=== PATIENT | male | born 1975 | race Caucasian/White ===

== ENCOUNTER 2019-10-14 16:11 | Inpatient (IN) | payer SELFPAY ==
[2019-10-14] VITALS (17 sets, daily range): BP systolic 120–176; BP diastolic 80–104; PULSE 78–111; RESP 14–24; TEMP 36.2–37.1; O2SAT 92–99; BMI 28.0
--- NOTE | 2019-10-14 16:41 | ED_ITS ---
HPI - Abdominal Pain General: Chief Complaint: Abdominal Pain Stated Complaint: abd pain, nausea, vomiting Time Seen by Provider: 10/14/19 16:28 History of Present Illness: HPI narrative: Patient is a generally healthy 44-year-old male presenting today with abdominal pain. He says he has had a ventral hernia before but he still has been able to push it back in. Today he lifted a light table and felt tearing and the hernia came out. Since that time is not been able to get it to push back in. He said it has been out for about 4 hours. He has had vomiting, sweating, severe pain. MD elicited complaint: abdominal pain Pertinent past history: other (Hernia) Onset (ago): hour(s) (4) Location: Periumbilical Associated Symptoms: Reports nausea and vomiting; Denies chills and fever(s) Review of Systems General: Reports: 10 or more systems reviewed and unremarkable except in HPI and below Const: Denies: fever(s), chills, fatigue or malaise Eyes: Denies: change in vision ENMT: Denies: odynophagia Card: Denies: chest pain or swelling of feet/ankles Resp: Denies: dyspnea, productive cough or non-productive cough GI: Reports: abdominal pain, nausea and vomiting : Denies: flank pain Musc: Denies: neck pain or back pain Skin/Breast: Denies: rash Neuro: Denies: headache(s), numbness in extremities or weakness in extremities Gurpreet/Lymph: Denies: easy bruising or easy bleeding PFS ED PFSH: Medical History Non Hodgkin's lymphoma Social History Smoking and tobacco status: never smoked Physical Exam Const: COMMON NORMALS: no acute distress, patient oriented x3, no limitations and alert GENERAL APPEARANCE: cooperative and comfortable HENMT: HEAD & SCALP: normal to inspection FACE & SINUS: normal facial exam Eye: GENERAL EYE: appearance normal, both eyes and all related structures Neck/C-Spine: COMMON NORMALS: supple, no meningeal signs and no JVD Chest: COMMONS NORMALS: normal inspection of the chest Resp: COMMON NORMALS: normal respiratory effort, No use of accessory muscles and clear to auscultation bilaterally AUSCULTATION: clear to auscultation bilaterally Cardio: COMMON NORMALS: no JVD, regular rate, regular rhythm and No murmurs present (Cardio) RATE: regular rate RHYTHM: regular rhythm GI: INSPECTION: Yes other (Softball sized ventral hernia just above the umbilicus. Tender, firm, nonreducible.) Back/Pelvis: COMMON NORMALS: thoracic and lumbar spine normal to inspection Extremity: COMMON NORMALS: normal to inspection Neuro: COMMON NORMALS: patient oriented x3, moves all extremities, no focal motor deficits and no sensory deficits noted SENSORIUM/ORIENTATION: Yes alert MENINGEAL SIGNS: Yes no meningeal signs Psych: COMMON NORMALS: mental status grossly normal, cooperative and normal affect Skin: COMMON NORMALS: no rashes or lesions noted and turgor normal GENERAL SKIN EXAM: no rashes or lesions noted and turgor normal Course ED course: I medicated the patient with Dilaudid and attempted to reduce the hernia. I was unsuccessful in call Dr. Lr. Dr. Lr took him to the OR for repair. Vital Signs: Vital signs: Vital Signs Temperature 98.0 F 10/15/19 19:34 Pulse Rate 80 10/15/19 19:57 Respiratory Rate 16 10/15/19 19:57 Blood Pressure 128/77 10/15/19 19:34 Pulse Oximetry 98 10/15/19 19:57 MDM - Abdominal Pain Lab Data: Labs: Lab Results 10/14/19 10/14/19 10/14/19 Range/Units 16:54 16:54 16:54 WBC 13.7 H (4.0-10.0) 10^3/ uL RBC 4.98 (4.1-5.3) 10^6/u L Hgb 14.7 (11.7-16.6) g/dL Hct 43.8 (42.0-52.0) % MCV 88.0 (80-94) fL MCH 29.5 (28.0-34.0) pg MCHC 33.6 (30.0-36.0) g/dL RDW 11.9 L (12.1-15.1) % Plt Count 374 (130-400) 10^3/c mm MPV 9.4 (7.4-10.4) fL Neut % (Auto) 83.1 % Lymph % (Auto) 13.0 % [place] % (Auto) 2.7 % Eos % (Auto) 0.2 % Baso % (Auto) 0.6 % Neut # (Auto) 11.4 H (1.8-7.7) 10^3/u L Lymph # (Auto) 1.8 (0.8-4.8) 10^3/u L [place] # (Auto) 0.4 (0.2-0.9) 10^3/u L Eos # (Auto) 0.0 (0.0-0.8) 10^3/u L Baso # (Auto) 0.1 (0.0-0.1) 10^3/u L Nucleated RBC % (a uto) 0 % Nucleated RBCs # 0.0 /100WBC Sodium 138 (136-145) mmol/L Potassium 4.1 (3.5-5.1) mmol/L Chloride 100 (98-107) mmol/L Carbon Dioxide 23 (22-29) mmol/L Anion Gap 19.1 H (5-19) BUN 14 (6-20) mg/dL Creatinine 1.0 (0.7-1.2) mg/dL GFR Calculation 80.8 L (90-130) mL/min Glucose 150 H (65-115) mg/dL Calculated Osmolal ity 285 (285-295) mOsm/k g Lactate 1.7 (0.5-2.2) mmol/L Calcium 11.0 H (8.5-10.5) mg/dL Total Bilirubin 0.4 (0.15-1.2) mg/dL AST 29 (0-40) U/L ALT 40 (0-41) U/L Alkaline Phosphata se 73 (40-130) IU/L Total Protein 7.8 (6.6-8.7) g/dL Albumin 4.5 (3.5-5.2) g/dL Globulin 3.3 (1.3-4.6) g/dL Lipase 15 (13-60) U/L Discharge Plan Discharge Patient Disposition: Admitted As Inpatient Admit Provider: Anuel Lr Discharge Date/Time: 10/14/19 19:00 Coding Level of Care Code ED Liquor Gallery Operator for g Fwd Exam Comprehensive
[2019-10-14 17:07] LABS: Basophils # 0.1 10^3/uL (0.0-0.1); Basophils % 0.6 %; Eosinophils % 0.2 %; Hematocrit 43.8 % (42.0-52.0); Hemoglobin 14.7 g/dL (11.7-16.6); Lymphocytes # 1.8 10^3/uL (0.8-4.8); Mean Corpuscular HGB Conc 33.6 g/dL (30.0-36.0); Mean Corpuscular Hemoglobin 29.5 pg (28.0-34.0); Mean Platelet Volume 9.4 fL (7.4-10.4); Monocytes # 0.4 10^3/uL (0.2-0.9); Monocytes % 2.7 %; Neutrophils # 11.4 10^3/uL (1.8-7.7); Neutrophils % 83.1 %; Nucleated Red Blood Cells % 0 %; Platelet Count 374 10^3/cmm (130-400); Red Blood Count 4.98 10^6/uL (4.1-5.3); Red Cell Distribution Width 11.9 % (12.1-15.1); White Blood Count 13.7 10^3/uL (4.0-10.0)
[2019-10-14] MEDS: ondansetron 2 mg/ML SDV 2 mL 4 MG IVP (17:16)
[2019-10-14] MEDS: sodium chloride 0.9% 1,000 ML 999 ML IV (17:17)
[2019-10-14] MEDS: HYDROmorphone 1 mg/mL INJ 1 mL IVP (17:17)
[2019-10-14 17:36] LABS: Alanine Aminotransferase 40 U/L (0-41); Albumin Level 4.5 g/dL (3.5-5.2); Alkaline Phosphatase 73 IU/L (40-130); Anion Gap 19.1 (5-19); Aspartate Amino Transferase 29 U/L (0-40); Blood Urea Nitrogen 14 mg/dL (6-20); Carbon Dioxide 23 mmol/L (22-29); Chloride 100 mmol/L (98-107); Creatinine Clr Calc Pharmacy 101.4563; Globulin 3.3 g/dL (1.3-4.6); Glomerular Filtration Rate 80.8 mL/min (90-130); Glucose 150 mg/dL (65-115); Lipase 15 U/L (13-60); Osmolality Calculated 285 mOsm/kg (285-295); Potassium 4.1 mmol/L (3.5-5.1); Sodium 138 mmol/L (136-145); Total Bilirubin 0.4 mg/dL (0.15-1.2); Total Protein 7.8 g/dL (6.6-8.7)
[2019-10-14 17:37] LABS: Lactate (Lactic Acid level) 1.7 mmol/L (0.5-2.2)
--- NOTE | 2019-10-14 18:04 | PM.HP ---
Providers/Chief Complaint Admitting Physician: Anuel Lr MD Chief Complaint: abd pain History of Present Illness Chief Complaint: Abdominal pain History of present illness: Mr Salty Joseph is a 44 year old male presents to the ER with worsening abdominal pain mostly in the periumbilical region, pain started around 1 PM today while the patient was attempting to lift heavy object and he had his previously diagnosed hernia to pop out and incarcerated and was not able to push it back as he used to before, patient denies any previous hernia repair and he admits that he had a previous laparoscopic biopsy for non-Hodgkin's lymphoma that was treated. An attempt but the ER attending to reduce the hernia was unsuccessful, general surgery was consulted for further evaluation, in the ER the patient was evaluated by me and found to have a large hernia which will not be reduced bedside and will require surgical intervention due to its size. Patient reports pain is mostly in the periumbilical region not being referred nothing makes it better except by lying down and what makes it worse by trying to push on it. Review of Systems General: Reports: 10 or more systems reviewed and unremarkable except in HPI and below Medications/Allergies Home Medications Medication Instructions Recorded Confirmed Last Taken Type No Known Home Medications 10/14/19 10/14/19 Unknown History Allergies Allergy/AdvReac Type Severity Reaction Status Date / Time No Known Allergies Allergy Verified 10/14/19 16:24 PFSH Acute PFSH: Medical History (Updated 10/14/19 @ 18:09 by Anuel Lr MD) Non Hodgkin's lymphoma Social History Smoking and tobacco status: never smoked Vitals/I&O/Wt Last Vital Signs Temp 97.8 F 10/14/19 16:20 Pulse 103 H 10/14/19 17:11 Resp 16 10/14/19 17:11 BP 176/103 10/14/19 17:11 Pulse Ox 99 10/14/19 17:11 Weight last 48 hrs Weight 190 lb Physical Exam Narrative: EXAM NARRATIVE: Patient is conscious alert oriented X3 BMI 28 Head and neck examination PERRLA no masses no cervical lymphadenopathy no jaundice Cardiac examination audible S1-S2 no murmurs no gallops no arrhythmias Chest is clear bilateral,abscence of Rhonchi or wheezes,no surgical emphysema Large ventral incarcerated hernia irreducible/mild erythema of the overlying skin Otherwise abdomen nontender nondistended soft no organomegaly guarding or rigidity/no signs of peritonitis Extremities no cyanosis no clubbing no edema Data : 10/14/19 16:54 10/14/19 16:54 A&P Assessment and plan (1) Incarcerated ventral hernia: After history taking physical examination and reviewing the toney.I counseled the patient for urgent open ventral hernia repair with possible mesh placement, indications, risks, benefits and alternatives all discussed with the patient including potential bowel resection if indicated. Patient understands the procedure and he wants to proceed accordingly Informed consent per chart Status: Acute Attestations Medical Necessity Statement*: Observation Time Spent in Patient Care: 16 - 35 minutes (>than 50% of time spent in counselling and/or direct pt care on unit). Coding Level of Care Code Acute Golf Starter And Ranger for Domenico Harrington Diagnoses Incarcerated ventral hernia K43.6
[2019-10-14] MEDS: morphine 4 mg/mL SDV 1 mL 2 MG IVP ×2 (18:24→22:27)
[2019-10-14] MEDS: sodium chloride 0.9% 1,000 ML 30 ML IV (19:10)
--- NOTE | 2019-10-14 19:16 | P.ANESASSM_ITS ---
Pre-Anesthetic Assessment Pre-Anesthetic Assessment: Height/Weight: Height 1.75 m Weight 86.183 kg Temp Pulse Resp BP Pulse Ox 97.8 F 101 H 18 170/99 94 10/14/19 16:20 10/14/19 18:11 10/14/19 18:24 10/14/19 18:11 10/14/19 18:11 Preop Diagnosis: Incarcerated ventral hernia Proposed Procedure: Operation Date: 10/14/19 19:15 Proposed Procedures p Laparoscopic Ventral Hernia Repair(Not Applicable) - Anuel Lr MD Social: Social History: No alcohol and No tobacco Exam: Pre-Anes Outpt Exam: alert, oriented x 3, clear to auscultation bilatera lly and regular rate & rhythm Airway: Submandibular: WNL Cervical ROM: WNL MP: 2 Dentition: Other (teeth ok) History/ROS: No significant history except as noted Pulmonary: Pulmonary: None reported CV/HEM: CV/HEM: None reported : : None reported Hepatic: Hepatic: None reported GI: GI: None reported Metabolic: Comments: Non Hodgkin's lymphoma Musc/skel: Musc/skel: None reported Neuropsych: Neuropsych: None reported Anesthetic Plan: ASA status: 2E Anesthesia: Anesthesia Evaluation and General Risk of > 500 ml blood loss (7ml/kg in children): No PFSH Anesthesia PFSH: Medical History Non Hodgkin's lymphoma Social History Smoking and tobacco status: never smoked Data Anesthesia CBC & Chem 7: 10/14/19 16:54 10/14/19 16:54 Other Labs: Laboratory Results - last 48 hr 10/14/19 10/14/19 10/14/19 16:54 16:54 16:54 WBC 13.7 H RBC 4.98 Hgb 14.7 Hct 43.8 MCV 88.0 MCH 29.5 MCHC 33.6 RDW 11.9 L Plt Count 374 MPV 9.4 Neut % (Auto) 83.1 Lymph % (Auto) 13.0 [place] % (Auto) 2.7 Eos % (Auto) 0.2 Baso % (Auto) 0.6 Neut # (Auto) 11.4 H Lymph # (Auto) 1.8 [place] # (Auto) 0.4 Eos # (Auto) 0.0 Baso # (Auto) 0.1 Nucleated RBC % (auto) 0 Nucleated RBCs # 0.0 Sodium 138 Potassium 4.1 Chloride 100 Carbon Dioxide 23 Anion Gap 19.1 H BUN 14 Creatinine 1.0 GFR Calculation 80.8 L Glucose 150 H Calculated Osmolality 285 Lactate 1.7 Calcium 11.0 H Total Bilirubin 0.4 AST 29 ALT 40 Alkaline Phosphatase 73 Total Protein 7.8 Albumin 4.5 Globulin 3.3 Lipase 15 Cardiac Studies: No Data to Display
--- NOTE | 2019-10-14 20:02 | PC.NURSE ---
1999 Spoke with patient's mother and let her know status
--- NOTE | 2019-10-14 20:55 | PM.OP ---
Operative Report Date of procedure: October 14, 2019 Pre-op Diagnosis: Incarcerated ventral hernia Post-op diagnosis: other (Incarcerated ventral hernia including infarcted partial part of the omentum and gangrenous small bowel loop likely mid jejunum measures about 3 inches) Procedure Done: Open primary repair of incarcerated ventral hernia Small bowel resection and [id number] anastomosis using STACI blue load 55 mm Partial omentectomy Specimens removed/disposition: Small bowel resection Partial omentectomy Hernial sac Staple line Surgeon: Anuel Lr Home Care Music Therapist: Surgical elana Coker Circulating nurse Jessica Stone Anesthesia: General (Lio Boyd and Dr. Jenkins) Estimated blood loss (mL): 25 Condition: stable Disposition: floor Brief History: Mr Salty Joseph is a 44 year old male presents to the ER with worsening abdominal pain mostly in the periumbilical region, pain started around 1 PM today while the patient was attempting to lift heavy object and he had his previously diagnosed hernia to pop out and incarcerated and was not able to push it back as he used to before, patient denies any previous hernia repair and he admits that he had a previous laparoscopic biopsy for non-Hodgkin's lymphoma that was treated. An attempt but the ER attending to reduce the hernia was unsuccessful, general surgery was consulted for further evaluation, in the ER the patient was evaluated by me and found to have a large hernia which will not be reduced bedside and will require surgical intervention due to its size. Patient reports pain is mostly in the periumbilical region not being referred nothing makes it better except by lying down and what makes it worse by trying to push on it. After thorough history physical examination and reviewing the chart I did school adjustment counselor the patient for open ventral hernia repair with possible mesh placement. Indications, risks, benefits and alternatives all discussed with the patient and he did agree to proceed Informed consent per chart Procedure: Patient was identified in holding area and the site of the hernia was marked by me, patient was asked to void urine prior to surgery,Patient was brought then to the operating room, general endotracheal anesthesia was administered by the anesthesia provider.prophylactic IV antibiotics were given per protocol Time-out was done verifying the patient's name/date of /planned procedure and destination after the procedure, all were in agreement. SCDs confirmed to be functioning, preoperative antibiotics administered per protocol, and beta randall protocol was confirmed. Prep and drape of the abdomen was done under the usual sterile technique. I started by Supraumbilical longitudinal skin incision dissection all the way through the subcutaneous layer, I was able to identify the incarcerated large ventral incisional hernia, dissection was carried all the way down to the fascia, hernia sac was then opened serosanguineous fluid was appreciated. Delivery of the incarcerated hernial contents in the form of dusky rodrigez looking part of the omentum encasing a segment of gangrenous mid jejunal loop about 3 inches in length. Attention was deviated to perform a small bowel resection with windows were created in the mesentery and a 55 mm blue load was used to divide proximal and distal,Delivery of the rest of bowel loops were done showed viable contents and then were placed back into the abdominal cavity Attention was deviated towards the anastomosis were 3-0 silk stay sutures were applied to the seromuscular layer and both limbs were approximated were additional windows were created and a STACI blue load was fired to create qbwk-[id number] anastomosis followed by that three Allis clamps were applied at the enterotomy sites were approximated of enterotomy edges and an additional 55 mm blue load was applied x2 and divided out the enterotomy sites and the staple line was sent for pathology. LigaSure was used to perform partial omentectomy of the diseased portion of the omentum. Specimens were passed for permanent pathology including partial omentectomy, small bowel resection, staple line and hernia sac. Attention was deviated towards the mesentery where it was closed by 3-0 silk, the acgv-yj-fthf anastomosis was patent as it was checked by the examining fingers.A 3-0 silk stitch was applied at the crutch of the anastomosis I was able to free the overlying fat on top of the fascia, facilitate primary closure. Thorough irrigation with warm saline was achieved followed by changing of the gloves At that point the fascial defect was about 5 inches diameter, after freeing all the adhesions, under direct visualization I was able to use #1 PDS to repair the defect primarily, as an interrupted [id number]-[id number] sutures, thorough irrigation of the wound was then achieved and hemostasis. Followed by an additional interrupted #1 PDS,2-0 Vicryl was used for subdermal closure,then skin maya were used for skin approximation followed by packing with half inch Nu Gauze in between the skin maya Exparel was injected for postoperative pain control Counts of sponges and instruments were completed at the end of the procedure Patient tolerated the procedure well and was taken to the recovery area in stable condition I was present for the whole entire procedure
--- NOTE | 2019-10-14 21:02 | SUR.PHASEI ---
2100 PATIENT TO PACU AT THIS TIME FROM OR. RR EVEN AND UNLABORED. SPO2 95% ON RA. DRESSING TO ABDOMEN, CDI WITH ABDOMINAL BINDER IN PLACE.
[2019-10-14] MEDS: labetalol 5 mg/mL SDV 20mL 10 MG IVP (21:07)
[2019-10-14] MEDS: fentaNYL 50 mcg/mL INJ 2mL IVP (21:23)
--- NOTE | 2019-10-14 21:52 | SUR.PHASEI ---
2136 PATIENT TO MED SURG. NO DISTRESS. DENIES NAUSEA. TOLERATING ICE CHIPS. PAIN IMPROVED. A/OX3.
--- NOTE | 2019-10-14 21:53 | SUR.PHASEI ---
2136 ANESTHESIA AWARE OF LAST DOSE OF IV PAIN MEDICATION. THIS NURSE REMAINED WITH PATIENT UNTIL 2149.
[2019-10-14] MEDS: sodium chloride 0.9% 1,000 ML 125 ML IV (22:27)
[2019-10-14] MEDS: piperacillin-tazobactam 3.375 GM in sodium chloride 0.9% (plus) 50 ML IV (22:29)
[2019-10-15] VITALS (9 sets, daily range): BP systolic 115–128; BP diastolic 70–81; PULSE 75–103; RESP 16–20; TEMP 36.5–37.2; O2SAT 93–98
[2019-10-15 03:54] LABS: Basophils % 0.2 %; Hematocrit 40.8 % (42.0-52.0); Hemoglobin 13.6 g/dL (11.7-16.6); Lymphocytes # 0.9 10^3/uL (0.8-4.8); Lymphocytes % 5.4 %; Mean Corpuscular HGB Conc 33.3 g/dL (30.0-36.0); Mean Corpuscular Hemoglobin 29.6 pg (28.0-34.0); Mean Corpuscular Volume 88.9 fL (80-94); Monocytes # 0.3 10^3/uL (0.2-0.9); Monocytes % 1.9 %; Neutrophils # 15.4 10^3/uL (1.8-7.7); Nucleated Red Blood Cells % 0 %; Platelet Count 339 10^3/cmm (130-400); Red Blood Count 4.59 10^6/uL (4.1-5.3); Red Cell Distribution Width 12.1 % (12.1-15.1); White Blood Count 16.7 10^3/uL (4.0-10.0)
[2019-10-15 04:07] LABS: Anion Gap 13.7 (5-19); Blood Urea Nitrogen 12 mg/dL (6-20); Calcium 8.7 mg/dL (8.5-10.5); Carbon Dioxide 25 mmol/L (22-29); Chloride 103 mmol/L (98-107); Glomerular Filtration Rate 104.5 mL/min (90-130); Glucose 157 mg/dL (65-115); Osmolality Calculated 283 mOsm/kg (285-295); Potassium 4.7 mmol/L (3.5-5.1); Sodium 137 mmol/L (136-145)
[2019-10-15] MEDS: sodium chloride 0.9% 1,000 ML 125 ML IV ×2 (05:47→14:40)
[2019-10-15] MEDS: piperacillin-tazobactam 3.375 GM in sodium chloride 0.9% (plus) 50 ML IV ×3 (05:47→21:59)
--- NOTE | 2019-10-15 06:34 | PM.PN ---
Subjective Subjective: Interval history: Patient overall feels better No acute events overnight Slight elevation in WBC count Vitals/I&O/Wt Last Vital Signs Temp 98.7 F 10/15/19 04:45 Pulse 101 H 10/15/19 04:45 Resp 16 10/15/19 04:45 BP 121/78 10/15/19 04:45 Pulse Ox 94 10/15/19 04:45 10/14/19 10/14/19 10/15/19 14:59 22:59 06:59 Intake Total 1150 / 1150 966.667 / 2116.667 Output Total Balance 1125 / 1125 966.667 / 2091.667 Weight last 48 hrs Weight 190 lb Physical Exam Narrative: EXAM NARRATIVE: Patient is conscious alert oriented X3 BMI 28 Head and neck examination PERRLA no masses no cervical lymphadenopathy no jaundice Cardiac examination audible S1-S2 no murmurs no gallops no arrhythmias Chest is clear bilateral,abscence of Rhonchi or wheezes,no surgical emphysema Abdomen nontender nondistended soft no organomegaly guarding or rigidity/no signs of peritonitis Incision is clean dry and intact and packing in place Extremities no cyanosis no clubbing no edema Data : 10/15/19 03:42 10/15/19 03:36 A&P Assessment and plan (1) Incarcerated ventral hernia: Encourage ambulation Incentive spirometer every hour Continue mechanical DVT prophylaxis Repeat labs in the morning Once patient starts passing gas will start him slowly on clear liquid diet I's and O's Assurance and education All questions have been answered and all concerns have been addressed to patient's satisfaction. Status: Resolved Attestations Medical Necessity Statement*: Medical necessity care is expected to cross 2 midnights Time Spent in Patient Care: (>than 50% of time spent in counselling and/or direct pt care on unit). Coding Level of Care Code Acute Procurement Assistant for Domenico Fwd Diagnoses Incarcerated ventral hernia K43.6
--- NOTE | 2019-10-15 09:12 | PC.CHAP ---
Pastoral Care Encounter/Spiritual Assessment Type of Contact [] Declined data consultant visit [] Patient/Family/Request visit [] Outpatient visit [] Follow-up visit [] Physician referral [] Code/Alert [x] Routine visit [] Staff referral [] Actively dying [] Patient sleeping [] Family support [] [] Out of room [] Palliative care [] [] Receiving care in room [] Pre-surgical visit [] Trauma [] Long length of stay [] ICU visit [] Other: Relational/Emotional Strength [] Patient feels connected with others/family/visitors/staff [] Distress [] Loneliness/isolation [] Abandonment Spirituality of Patient [] Person of Gwendolyn [] Attends Confucianism of their Gwendolyn [] Believes in Prayer [] Reads Bible or Worship materials [] There are Spiritual issues to be addressed Business Performance Advisor Interventions [x] Prayer [] Active listening [] Non-anxious presence [] Spiritual/emotional support [] Crisis/trauma care [] Spiritual counseling [] Bereavement support [] Provided bereavement packet [] Provided Bible/devotional materials [] Provided toy/stuffed animal, coloring book to patient or family member [] Provided Communion [] Anointing/[place] [] Salvation [x] Completed spiritual assessment [] Other: Impact on Illness or Injury [] Angry [] Fearful [] Anxious [] Often cries [] Exhaustion [] Unable to work [] Unable to attend gnosticist [] Unable to walk/stand [] Unable to read [] Unable to drive [] Unable to eat/drink [] Unable to sleep [] Unable to be with family [] Patient intubated [] Other: Summary Patients pain better. Patient resting well Time spent with patient 5 min
[2019-10-15] MEDS: acetaminophen 325 mg Tablet 650 MG PO ×2 (17:13→23:50)
[2019-10-16] VITALS (7 sets, daily range): BP systolic 127–150; BP diastolic 78–89; PULSE 78–110; RESP 16–20; TEMP 36.4–37.2; O2SAT 95–98
[2019-10-16] MEDS: sodium chloride 0.9% 1,000 ML 125 ML IV ×3 (02:12→13:54)
[2019-10-16 05:03] LABS: Basophils # 0.1 10^3/uL (0.0-0.1); Basophils % 0.5 %; Eosinophils % 0.1 %; Hematocrit 34.5 % (42.0-52.0); Hemoglobin 11.3 g/dL (11.7-16.6); Lymphocytes # 2.7 10^3/uL (0.8-4.8); Lymphocytes % 23.4 %; Mean Corpuscular HGB Conc 32.8 g/dL (30.0-36.0); Mean Corpuscular Hemoglobin 29.3 pg (28.0-34.0); Mean Corpuscular Volume 89.4 fL (80-94); Mean Platelet Volume 9.1 fL (7.4-10.4); Monocytes # 0.8 10^3/uL (0.2-0.9); Monocytes % 6.8 %; Neutrophils # 8.1 10^3/uL (1.8-7.7); Neutrophils % 68.9 %; Nucleated Red Blood Cells % 0 %; Platelet Count 317 10^3/cmm (130-400); Red Blood Count 3.86 10^6/uL (4.1-5.3); Red Cell Distribution Width 12.5 % (12.1-15.1); White Blood Count 11.7 10^3/uL (4.0-10.0)
[2019-10-16 05:27] LABS: Chloride 109 mmol/L (98-107); Potassium 3.9 mmol/L (3.5-5.1); Sodium 142 mmol/L (136-145)
[2019-10-16 05:48] LABS: Alanine Aminotransferase 20 U/L (0-41); Albumin Level 3.7 g/dL (3.5-5.2); Alkaline Phosphatase 50 IU/L (40-130); Anion Gap 11.9 (5-19); Aspartate Amino Transferase 16 U/L (0-40); Blood Urea Nitrogen 10 mg/dL (6-20); Calcium 8.8 mg/dL (8.5-10.5); Carbon Dioxide 25 mmol/L (22-29); Globulin 2.2 g/dL (1.3-4.6); Glucose 110 mg/dL (65-115); Osmolality Calculated 291 mOsm/kg (285-295); Total Bilirubin 0.4 mg/dL (0.15-1.2); Total Protein 5.9 g/dL (6.6-8.7)
--- NOTE | 2019-10-16 05:54 | PM.PN ---
Subjective Subjective: Interval history: No acute events overnight Patient did not pass gas yet Trending down of leukocytosis Good urine output Vitals/I&O/Wt Last Vital Signs Temp 98.2 F 10/16/19 04:00 Pulse 96 10/16/19 04:00 Resp 18 10/16/19 04:00 BP 127/78 10/16/19 04:00 Pulse Ox 95 10/16/19 04:00 10/15/19 10/15/19 10/16/19 14:59 22:59 06:59 Intake Total 1050 / 1050 1050 / 2100 50 / 2150 Output Total 1100 / 1100 1100 / 2200 Balance -50 / -50 1050 / 1000 -1050 / -50 Weight last 48 hrs Weight 190 lb Physical Exam Narrative: EXAM NARRATIVE: Patient is conscious alert oriented X3 BMI 28 Head and neck examination PERRLA no masses no cervical lymphadenopathy no jaundice Cardiac examination audible S1-S2 no murmurs no gallops no arrhythmias Chest is clear bilateral,abscence of Rhonchi or wheezes,no surgical emphysema Abdomen nontender sepsis-like at the incision site and skin maya in place nondistended soft no organomegaly guarding or rigidity/no signs of peritonitis Dressing was undone and packing were removed and bedside packing was done by ma Extremities no cyanosis no clubbing no edema Data : 10/17/19 05:34 10/17/19 05:34 A&P Assessment and plan (1) Incarcerated ventral hernia: Patient is postoperative day 2 status post open ventral hernia repair and bowel resection Continue n.p.o. except for popsicle, patient started passing gas will start slowly on clear liquid We will continue IV antibiotic therapy due to the bowel resection was gangrenous Packing the wound daily with half inch Nu Gauze wet-to-dry followed by ABDs Assurance and education All questions have been answered and all concerns have been addressed to patient's satisfaction. Status: Resolved Attestations Medical Necessity Statement*: Medical necessity care is expected to cross 2 midnights Time Spent in Patient Care: 16 - 35 minutes (>than 50% of time spent in counselling and/or direct pt care on unit). Coding Level of Care Code Acute Polishing Machine Operator for Domenico Harrington Diagnoses Incarcerated ventral hernia K43.6
[2019-10-16] MEDS: piperacillin-tazobactam 3.375 GM in sodium chloride 0.9% (plus) 50 ML IV ×3 (06:00→21:58)
--- NOTE | 2019-10-16 12:35 | PC.NURSE ---
AMBULATION Patient ambulated in halls for approx. 1 hours. Patient denies gas at this time. BS actie X4. SILVANAW, AIRCRAFT ARMAMENT MECHANIC
[2019-10-17] VITALS (8 sets, daily range): BP systolic 128–162; BP diastolic 86–106; PULSE 84–108; RESP 18–20; TEMP 36.4–37.3; O2SAT 95–98
[2019-10-17 05:58] LABS: Basophils # 0.1 10^3/uL (0.0-0.1); Basophils % 0.6 %; Eosinophils % 0.3 %; Hematocrit 44.6 % (42.0-52.0); Hemoglobin 14.2 g/dL (11.7-16.6); Lymphocytes # 2.4 10^3/uL (0.8-4.8); Lymphocytes % 17.3 %; Mean Corpuscular HGB Conc 31.8 g/dL (30.0-36.0); Mean Platelet Volume 9.3 fL (7.4-10.4); Monocytes % 7.2 %; Neutrophils # 10.1 10^3/uL (1.8-7.7); Neutrophils % 74.2 %; Nucleated Red Blood Cells % 0 %; Platelet Count 365 10^3/cmm (130-400); White Blood Count 13.6 10^3/uL (4.0-10.0)
[2019-10-17 06:13] LABS: Anion Gap 19.7 (5-19); Blood Urea Nitrogen 13 mg/dL (6-20); Carbon Dioxide 17 mmol/L (22-29); Chloride 105 mmol/L (98-107); Glucose 84 mg/dL (65-115); Osmolality Calculated 281 mOsm/kg (285-295); Potassium 3.7 mmol/L (3.5-5.1); Sodium 138 mmol/L (136-145)
--- NOTE | 2019-10-17 06:30 | P.PN_ITS ---
Subjective Subjective: Interval history: Patient overall feels well Trending up leukocytosis likely underlying atelectasis Vitals/I&O/Wt Last Vital Signs Temp 98.5 F 10/17/19 04:00 Pulse 101 H 10/17/19 04:00 Resp 20 H 10/17/19 04:00 BP 139/93 10/17/19 04:00 Pulse Ox 95 10/17/19 04:00 10/16/19 10/16/19 10/17/19 14:59 22:59 06:59 Intake Total 1512.500 / 1512.500 50 / 1562.500 Output Total 1750 / 1750 300 / 2050 0 / 2050 Balance -237.500 / -237.500 -250 / -487.500 0 / -487.500 Physical Exam Narrative: EXAM NARRATIVE: Patient is conscious alert oriented X3 BMI 28 Head and neck examination PERRLA no masses no cervical lymphadenopathy no jaundice Cardiac examination audible S1-S2 no murmurs no gallops no arrhythmias Chest fair air entry bilateral Abdomen nontender nondistended soft no organomegaly guarding or rigidity/no signs of peritonitis/wound is clean Extremities no cyanosis no clubbing no edema Data : 10/17/19 05:34 10/17/19 05:34 A&P Assessment and plan (1) Incarcerated ventral hernia: Patient is postoperative day 3 status post open ventral hernia repair and bowel resection Continue n.p.o. except for popsicle, patient started passing gas will start slowly on clear liquid We will continue IV antibiotic therapy due to the bowel resection was gangrenous Packing the wound daily with half inch Nu Gauze wet-to-dry followed by ABDs Assurance and education All questions have been answered and all concerns have been addressed to patient's satisfaction. Status: Resolved Attestations Medical Necessity Statement*: Medical necessity care is expected to cross 2 midnights Time Spent in Patient Care: (>than 50% of time spent in counselling and/or direct pt care on unit) . Coding Level of Care Code Acute Social Professionals for Atiyag Fwd Diagnoses Incarcerated ventral hernia K43.6
[2019-10-17] MEDS: piperacillin-tazobactam 3.375 GM in sodium chloride 0.9% (plus) 50 ML IV ×3 (07:10→22:25)
[2019-10-17] MEDS: sodium chloride 0.9% 1,000 ML 125 ML IV (08:01)
[2019-10-17] MEDS: acetaminophen 325 mg Tablet 650 MG PO ×2 (10:37→19:39)
--- NOTE | 2019-10-17 11:21 | PC.NURSE ---
Patient is ambulating in hallway. He is passing gas at this time. SILVANAW, AUDIO VISUAL DESIGN ENGINEER
[2019-10-17] MEDS: dextrose 5%-ns + KCl 20 20 MEQ/1,000 ML BAG 100 MEQ IV (11:45)
[2019-10-18] MEDS: dextrose 5%-ns + KCl 20 20 MEQ/1,000 ML BAG 50 MEQ IV (00:45)
[2019-10-18 03:21] VITALS: BP 135/89; PULSE 88; RESP 18; TEMP 36.6; O2SAT 96
[2019-10-18 05:00] LABS: Basophils # 0.1 10^3/uL (0.0-0.1); Basophils % 0.8 %; Eosinophils # 0.2 10^3/uL (0.0-0.8); Eosinophils % 2.1 %; Hematocrit 37.8 % (42.0-52.0); Hemoglobin 12.5 g/dL (11.7-16.6); Lymphocytes # 2.4 10^3/uL (0.8-4.8); Lymphocytes % 25.8 %; Mean Corpuscular HGB Conc 33.1 g/dL (30.0-36.0); Mean Corpuscular Hemoglobin 29.6 pg (28.0-34.0); Mean Corpuscular Volume 89.6 fL (80-94); Monocytes # 0.7 10^3/uL (0.2-0.9); Monocytes % 7.9 %; Neutrophils % 63.2 %; Nucleated Red Blood Cells % 0 %; Platelet Count 282 10^3/cmm (130-400); Red Blood Count 4.22 10^6/uL (4.1-5.3); Red Cell Distribution Width 11.9 % (12.1-15.1); White Blood Count 9.4 10^3/uL (4.0-10.0)
[2019-10-18] MEDS: acetaminophen 325 mg Tablet 650 MG PO (05:14)
--- NOTE | 2019-10-18 06:23 | P.PN_ITS ---
Subjective Subjective: Interval history: No acute events overnight Patient tolerating well clear liquid diet and passing gas and had a bowel movement WBC count within normal limits Vitals/I&O/Wt Last Vital Signs Temp 97.9 F 10/18/19 03:21 Pulse 88 10/18/19 03:21 Resp 18 10/18/19 03:21 BP 135/89 10/18/19 03:21 Pulse Ox 96 10/18/19 03:21 10/17/19 10/17/19 10/18/19 14:59 22:59 06:59 Intake Total 50 / 50 1485 / 1535 342.5 / 1877.5 Output Total 600 / 600 Balance 50 / 50 1485 / 1535 -257.5 / 1277.5 Physical Exam Narrative: EXAM NARRATIVE: Patient is conscious alert oriented X3 BMI 28 Head and neck examination PERRLA no masses no cervical lymphadenopathy no jaundice Cardiac examination audible S1-S2 no murmurs no gallops no arrhythmias Chest fair air entry bilateral Abdomen nontender nondistended soft no organomegaly guarding or rigidity/no signs of peritonitis/wound is clean Incision is clean and no evidence of surgical site infection Extremities no cyanosis no clubbing no edema Data : 10/18/19 04:48 10/17/19 05:34 A&P Assessment and plan (1) Incarcerated ventral hernia: Patient is postoperative day 4 status post open ventral hernia repair and bowel resection Will advance to full liquid diet We will plan to discharge patient home today and follow-up with surgery office Teaching and education with regard to packing the wound daily with half inch Nu Gauze wet-to-dry followed by ABDs Assurance and education All questions have been answered and all concerns have been addressed to patient's satisfaction. Status: Resolved Attestations Medical Necessity Statement*: Medical necessity care is expected to cross 2 midnights Time Spent in Patient Care: 16 - 35 minutes (>than 50% of time spent in counselling and/or direct pt care on unit) . Coding Level of Care Code Acute Supervisor Component Assembler for Domenico Harrington Diagnoses Incarcerated ventral hernia K43.6
[2019-10-18 07:55] VITALS: BP 143/88; PULSE 95; RESP 17; TEMP 36.4; O2SAT 98
--- NOTE | 2019-10-18 08:11 | PM.DCS ---
Discharge Providers Date of Admission: 10/14/19 20:45 Date of Discharge: October 18, 2019 Attending Provider at Admission: Anuel Lr MD Attending Provider at Discharge: Anuel Lr MD Diagnoses at Discharge Discharge Diagnosis (1) Incarcerated ventral hernia: Status: Resolved Reason for Visit Reason for Visit: Reason For Visit: abd pain Hospital Course Discharge Summary: Mr Salty Joseph is a 44 year old male presents to the ER with worsening abdominal pain mostly in the periumbilical region, pain started around 1 PM today while the patient was attempting to lift heavy object and he had his previously diagnosed hernia to pop out and incarcerated and was not able to push it back as he used to before, patient denies any previous hernia repair and he admits that he had a previous laparoscopic biopsy for non-Hodgkin's lymphoma that was treated. An attempt but the ER attending to reduce the hernia was unsuccessful, general surgery was consulted for further evaluation, in the ER the patient was evaluated by me and found to have a large hernia which will not be reduced bedside and will require surgical intervention due to its size. Patient reports pain is mostly in the periumbilical region not being referred nothing makes it better except by lying down and what makes it worse by trying to push on it. Patient was taken urgently to the OR and had an open ventral hernia repair with small bowel resection, and partial omentectomy was done and primarily repaired the hernia. Patient was hospitalized and started passing gas and then was started on clear liquid diet and has been tolerating that well and today had a bowel movement, has been covered with parenteral antimicrobial therapy due to the severely ischemic and gangrenous nature of the small bowel resection, daily packing of the wound was achieved. Patient continues to have stable vital signs and no fevers And well instructed and educated about incentive spirometer utilization Discharge Data Data Completed and Pending: Completed Studies During Hospitalization Category Date Time Status Pathology: Surgic al [PTH] Routine Pth 10/14/19 20:54 Completed Labs from last 24 hours 10/18/19 04:48 WBC 9.4 RBC 4.22 Hgb 12.5 Hct 37.8 L MCV 89.6 MCH 29.6 MCHC 33.1 RDW 11.9 L Plt Count 282 MPV 9.0 Neut % (Auto) 63.2 Lymph % (Auto) 25.8 Colbert % (Auto) 7.9 Eos % (Auto) 2.1 Baso % (Auto) 0.8 Neut # (Auto) 6.0 Lymph # (Auto) 2.4 Colbert # (Auto) 0.7 Eos # (Auto) 0.2 Baso # (Auto) 0.1 Nucleated RBC % (a uto) 0 Nucleated RBCs # 0.0 Vitals: Last Vital Signs Temp 97.6 F 10/18/19 07:55 Pulse 95 10/18/19 07:55 Resp 17 10/18/19 07:55 BP 143/88 10/18/19 07:55 Pulse Ox 98 10/18/19 07:55 Discharge Plan Discharge Patient Disposition: Home, Self-Care Condition: Stable Prescriptions: New acetaminophen 325 mg Tablet 650 mg PO Q6H PRN (Reason: Mild Pain Or Increase Temp) Qty: 30 RF: 0 Discharge Orders: Discharge Order (Routine); Ordered 10/18/19 Ordered By: Anuel Lr Referrals: Anuel Lr MD [Physician] - (Return to surgery office in 1 week) Discharge Diet: Full LIquid Activity Restrictions/Additional Instructions: 1. Patient can shower while dressing in place but no soaking in a tub Jacuzzi or swimming pool till incision is completely healed 2. Daily packing of the wound in the form of half inch Nu Gauze followed by ABD 3. Up and walking as tolerated 4. Do lift more than 5 pounds first 2 weeks after surgery and not more than 25 pounds 6 to 8 weeks after surgery. 5. Do not operate heavy machinery or drive while using pain medications. 6.Contact the office or return to the ER for worsening nausea vomiting fevers or chills, or noticing any redness around incision sites or discharge. 7. Advised to return to ER or contact my office if there are any signs of infection like, increasing pain, fevers, chills, redness or drainage of pus. 8. Avoid constipation 9. Please call for any questions or concerns 10. Incentive spirometer every hour 11. Abdominal binder for comfort 12. Full liquid diet today and tomorrow and then start to advance to soft GI diet thereafter till patient comes in see me back in the office Discharge Attestations Time Spent in Discharge Care*: greater than 30 min Status at Discharge: Cognitive status at discharge: cognitively intact, Behavioral status at discharge: cooperative, Functional status at discharge: independent ambulation Overall status at discharge: patient is progressing back to baseline Quality Metrics Clinical Quality Measures During this hospital stay, did patient experience: None Coding Level of Care Code Acute Certified Hand Therapist for Chg Fwd Diagnoses Incarcerated ventral hernia K43.6
[2019-10-18] MEDS: piperacillin-tazobactam 3.375 GM in sodium chloride 0.9% (plus) 50 ML IV (08:54)
[2019-10-18 11:08] VITALS: BP 149/96; PULSE 97; RESP 16; TEMP 36.8; O2SAT 98
[2019-10-18 14:32] VITALS: BP 149/96; PULSE 97; RESP 16; TEMP 36.8; O2SAT 98
== END 2019-10-18 14:33 | disposition home or self-care (01) | DRG 331 ==
LOC: ER 16:28 → OR 18:10 → MEDSURG 20:49
PROVIDERS: Emergency Medicine; Admitting Provider Surgery; Visit Provider Surgery
PROC: 0WQF0ZZ Repair Abdominal Wall, Open Approach (ICD-10-PCS; principal; 2019-10-14 19:15)
PROC: 0DTA0ZZ Resection of Jejunum, Open Approach (ICD-10-PCS; CPT 44120; 2019-10-14 19:15)
DX: K43.7 Other and unspecified ventral hernia with gangrene (principal); Z85.72 Personal history of non-Hodgkin lymphomas
CPT/HCPCS: 12345; 36415; 80048; 80053; 83605; 83690; 85025; 88302; 88307; 96375; 99283; C9290; J0131; J0330; J0690; J1100; J1170; J2270; J2405; J2543; J2704; J2710; J3010; J3490; J7030